=== PATIENT | female | born 1970 | race Asian ===

== ENCOUNTER 2021-03-05 09:53 | Outpatient (CLI) | payer BC ==
[2021-03-05] MEDS ORDERED: DIATR MEGLU/DIATRIZ SOD 30 ML SOLUTION PO ONE (11:34)
== END 2021-03-05 20:17 | disposition home or self-care (01) ==
LOC: SCT 09:53
DX: I77.810 Thoracic aortic ectasia (principal); N85.4 Malposition of uterus; K21.9 Gastro-esophageal reflux disease without esophagitis; K63.89 Other specified diseases of intestine; K57.92 Diverticulitis of intestine, part unspecified, without perforation or abscess without bleeding; K76.89 Other specified diseases of liver
CPT/HCPCS: 71260; 74177; 76376; Q9964; Q9967